=== PATIENT | female | born 1980 | race Caucasian/White ===

== ENCOUNTER 2019-09-14 06:49 | Emergency (ER) | payer BC, OTHER ==
[2019-09-14] MEDS ORDERED: IBUPROFEN 400 MG TAB ONE (07:16)
[2019-09-14] MEDS ORDERED: LIDOCAINE VISCOUS 2% SOLN 15 ML UDC ONE (07:16)
[2019-09-14] MEDS ORDERED: dexAMETHasone 10 MG/ML VIAL ONE (07:16)
--- NOTE | 2019-09-14 07:36 | ER ---
Nurse's Notes [facility] Name: Angela Duff Age: 38 yrs Sex: Female : 1980 Arrival Date: 09/14/2019 Time: 06:52 Bed 20 Private MD: Diagnosis: Strep Pharyngitis Presentation: 09/14 07:11 Presenting complaint: Bilateral ear pain and sore throat x 3 days. Transition of care: hb patient was not received from another setting of care. Onset of symptoms was September 12, 2019. Risk Assessment: Do you want to hurt yourself or someone else? Patient reports no desire to harm self or others. Initial Sepsis Screen: Does the patient meet any 2 criteria? No. Patient's initial sepsis screen is negative. Does the patient have a suspected source of infection? No. Patient's initial sepsis screen is negative. Care prior to arrival: None. 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 - Social history:: Smoking status: Patient/guardian denies using tobacco. - Ebola Screening: : No symptoms or risks identified at this time. Screenin:21 Abuse screen: Denies threats or abuse. Nutritional screening: No deficits noted. em Tuberculosis screening: No symptoms or risk factors identified. Fall Risk None identified. Assessment: 07:22 General: Appears in no apparent distress. uncomfortable, ill, well groomed, well em developed, well nourished, Behavior is calm, cooperative, Reports feeling ill for 2-3 days. Pain: Complains of pain in throat Pain currently is 8 out of 10 on a pain scale. Neuro: Level of Consciousness is awake, alert, obeys commands, Oriented to person, place, time, situation, Appropriate for age. Cardiovascular: Capillary refill < 3 seconds Patient's skin is warm and dry. Respiratory: Airway is patent Respiratory effort is even, unlabored, Respiratory pattern is regular, symmetrical, Breath sounds are clear bilaterally. Denies cough. GI: Patient currently denies nausea, vomiting. EENT: Nares are clear Oral mucosa is moist. Throat is reddened has enlarged tonsils bilaterally. Derm: Skin is intact, is healthy with good turgor, Skin is pink, warm \T\ dry. Musculoskeletal: Capillary refill < 3 seconds, Range of motion: intact in all extremities. 07:30 Reassessment: I agree with previous assessment. hb Vital Signs: 07:11 BP 145 / 64; Pulse 97; Resp 16; Temp 99.4(O); Pulse Ox 100% on R/A; Weight 65.77 kg; hb Height 5 ft. 8 in. (172.72 cm); Pain 5/10; 07:11 Body Mass Index 22.05 (65.77 kg, 172.72 cm) hb ED Course: 06:52 Patient arrived in ED. ds1 06:53 Isai Turner MD is Attending Physician. ps1 07:06 Jeremie Aragon LVN is Primary Nurse. em 07:11 Triage completed. hb 07:11 Arm band placed on. hb 07:21 Patient has correct armband on for positive identification. Bed in low position. Call em light in reach. Pulse ox on. NIBP on. 07:21 Strep swab sent to lab. em 08:02 No provider procedures requiring assistance completed. Patient did not have IV access em during this emergency room visit. Administered Medications: 07:20 Drug: Decadron 10 mg Route: PO; em 07:48 Follow up: Response: No adverse reaction; Pain is decreased em 07:20 Drug: Motrin 800 mg Route: PO; em 07:48 Follow up: Response: No adverse reaction; Pain is decreased em 07:20 Drug: Viscous Lidocaine Liquid (4 %) 10 ml Route: Mucous Membrane; em 07:49 Follow up: Response: No adverse reaction; Pain is decreased em 07:48 Drug: Bicillin L-A 1.2 million units Route: IM; Site: left gluteus; em 08:03 Follow up: Response: No adverse reaction em Outcome: 07:34 Discharge ordered by . ps1 08:02 Discharged to home ambulatory. em 08:02 Condition: good 08:02 Discharge instructions given to patient, Instructed on discharge instructions, follow up and referral plans. Demonstrated understanding of instructions, follow-up care. 08:03 Patient left the ED. em Signatures: Jeremie Aragon, ACCOUNT SERVICE ASSOCIATE ACCOUNT SERVICE ASSOCIATE Jovita Nix ds1 Vickie Asif, [place] RN Isai Rizo MD MD ps1
--- NOTE | 2019-09-14 07:36 | EDPHYS ---
Physician Documentation [facility] Name: Angela Duff Age: 38 yrs Sex: Female : 1980 Arrival Date: 09/14/2019 Time: 06:52 Bed 20 Private MD: ED Physician Isai Turner HPI: 09/14 07:12 This 38 yrs old Female presents to ER via Ambulatory with complaints of ps1 Throat Swelling, Ear Pain. 07:12 Onset was over a week ago. Was taking OTC medications but stopped after she said they ps1 were ineffective. States that she has had ear pressure additionally. No fever. Hx of allergies. Has post nasal drip. . 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 - Social history:: Smoking status: Patient/guardian denies using tobacco. - Ebola Screening: : No symptoms or risks identified at this time. ROS: 07:12 Eyes: Negative for injury, pain, redness, and discharge, Cardiovascular: Negative for ps1 chest pain, palpitations, and edema, Respiratory: Negative for shortness of breath, cough, wheezing, and pleuritic chest pain, Abdomen/GI: Negative for abdominal pain, nausea, vomiting, diarrhea, and constipation, MS/Extremity: Negative for injury and deformity, Skin: Negative for injury, rash, and discoloration, Neuro: Negative for headache, weakness, numbness, tingling, and seizure. 07:12 Constitutional: Positive for fatigue. 07:12 ENT: Positive for ear pain, sinus congestion, sore throat. Exam: 07:12 Constitutional: This is a well developed, well nourished patient who is awake, alert, ps1 and in no acute distress. Head/Face: Normocephalic, atraumatic. Eyes: Pupils equal round and reactive to light, extra-ocular motions intact. Lids and lashes normal. Conjunctiva and sclera are non-icteric and not injected. Cardiovascular: Regular rate and rhythm. No gallops, murmurs, or rubs. Normal PMI, no JVD. No pulse deficits. Respiratory: Lungs have equal breath sounds bilaterally, clear to auscultation and percussion. No rales, rhonchi or wheezes noted. No increased work of breathing, no retractions or nasal flaring. Abdomen/GI: Soft, non-tender, with normal bowel sounds. No distension or tympany. No guarding or rebound. No evidence of tenderness throughout. Skin: Warm, dry with normal turgor. Normal color with no rashes, no lesions, and no evidence of cellulitis. MS/ Extremity: Pulses equal, no cyanosis. Neurovascular intact. Full, normal range of motion. Neuro: Awake and alert, GCS 15, oriented to person, place, time, and situation. Cranial nerves II-XII grossly intact. Sensory grossly intact. 07:12 ENT: External ear(s): are unremarkable, Nose: is normal, Mouth: is normal, Posterior pharynx: Airway: normal, no evidence of obstruction, Tonsils: bilaterally enlarged, with erythema, no exudate, no ulcerations, peritonsillar mass, is not appreciated. Vital Signs: 07:11 BP 145 / 64; Pulse 97; Resp 16; Temp 99.4(O); Pulse Ox 100% on R/A; Weight 65.77 kg; hb Height 5 ft. 8 in. (172.72 cm); Pain 5/10; 07:11 Body Mass Index 22.05 (65.77 kg, 172.72 cm) hb MDM: 07:22 Patient medically screened. ps1 07:33 Data reviewed: vital signs, nurses notes, lab test result(s), and as a result, I will ps1 discharge patient. Counseling: I had a detailed discussion with the patient and/or guardian regarding: the historical points, exam findings, and any diagnostic results supporting the discharge/admit diagnosis, lab results, to return to the emergency department if symptoms worsen or persist or if there are any questions or concerns that arise at home. 09/14 07:11 Order name: Strep; Complete Time: 07:39 ps1 Administered Medications: 07:20 Drug: Decadron 10 mg Route: PO; em 07:48 Follow up: Response: No adverse reaction; Pain is decreased em 07:20 Drug: Motrin 800 mg Route: PO; em 07:48 Follow up: Response: No adverse reaction; Pain is decreased em 07:20 Drug: Viscous Lidocaine Liquid (4 %) 10 ml Route: Mucous Membrane; em 07:49 Follow up: Response: No adverse reaction; Pain is decreased em 07:48 Drug: Bicillin L-A 1.2 million units Route: IM; Site: left gluteus; em 08:03 Follow up: Response: No adverse reaction em Disposition: 09/14/19 07:34 Discharged to Home. Impression: Strep Pharyngitis. - Condition is Stable. - Discharge Instructions: Strep Throat, [id number]. - Medication Reconciliation Form, Thank You Letter, Antibiotic Education, Prescription Opioid Use form. - Follow up: Emergency Department; When: As needed; Reason: Worsening of condition. Follow up: Private Physician; When: As needed; Reason: Recheck today's complaints, Continuance of care, Re-evaluation by your physician. - Problem is new. - Symptoms are unchanged. Signatures: Dispatcher [employer] EDJeremie Fam, BASSAM TELLEZN Vickie Hanson RN RN hb Singer, Phillip, MD MD ps1 Corrections: (The following items were deleted from the chart) 08:03 07:34 09/14/2019 07:34 Discharged to Home. Impression: Strep Pharyngitis. Condition is em Stable. Forms are Medication Reconciliation Form, Thank You Letter, Antibiotic Education, Prescription Opioid Use. Follow up: Emergency Department; When: As needed; Reason: Worsening of condition. Follow up: Private Physician; When: As needed; Reason: Recheck today's complaints, Continuance of care, Re-evaluation by your physician. Problem is new. Symptoms are unchanged. ps1
[2019-09-14] MEDS ORDERED: PEN G BENZ LA 1.2MU/2ML SYRINGE IM ONE (07:38)
[2019-09-14 08:12] VITALS: BP 145/64; TEMP 99.4; O2SAT 100
== END 2019-09-14 08:03 | disposition home or self-care (01) ==
LOC: ER 06:49
DX: J02.0 Streptococcal pharyngitis (principal)
CPT/HCPCS: 87081; 96372; 99283; J0561; J1100